=== PATIENT | male | born 1965 | race Caucasian/White ===

== ENCOUNTER 2019-11-04 09:21 | Outpatient (CLI) | payer BC, SELFPAY ==
--- NOTE | 2019-11-04 10:00 | CT_ITS ---
WS: [id number] CT CHEST, ABDOMEN, AND PELVIS TECHNIQUE: Contrast-enhanced CT of the chest, abdomen, and pelvis with coronal and sagittal reformatt ed images. CLINICAL INFORMATION: COLON CANCER COMPARISON: CT 11/23/2018 and 11/17/2017 DLP: 2659.[address] scans at [facility] use at least one of these dose optimization techniques: automat ed exposure control; mA and/or kV adjustment per patient size (includes targeted exams where dose is matched to clinical indication); or iterative reconstruction. CT CHEST: 3 mm noncalcified pulmonary nodule right middle lobe anteriorly is unchanged. No new pulmonary parenc hymal abnormalities. No acute pulmonary infiltrates. No mediastinal or hilar lymphadenopathy. No axil rajiv lymphadenopathy. Normal thoracic aorta. Calcified right hilar nodes. Normal thyroid gland. No ev idence of metastatic disease in the chest. CT ABDOMEN AND PELVIS: Normal liver. Calcified gallstones in the gallbladder. Normal spleen. Normal gastric esophageal junct ion. Adrenal glands are normal. Normal renal parenchymal enhancement. Normal pancreas. No abdominal l ymphadenopathy. No periaortic lymphadenopathy. No inguinal lymphadenopathy. Prior rectosigmoid anasto mosis. Incidental fat-containing umbilical hernia. Enlarged prostate measuring 4.1 x 5.0 cm appears progressed since 2019. Recommend correlation PSA. CT/CT chest abd pel w con* IMPRESSION: 1. No evidence of metastatic disease in the chest abdomen or pelvis. 2. Stable rectosigmoid anastomosis. 3. Stable tiny 3 mm right middle lobe noncalcified nodule is unchanged. 4. Stable cholelithiasis with gallstones near the gallbladder neck. 5. Enlarged prostate measuring 4.1 x 5.0 cm appears progressed since 2019. Norberto mmend correlation PSA.
[2019-11-04 10:12] LABS: Basophils # 0.1 10^3/uL (0.0-0.1); Basophils % 1.7 %; Eosinophils # 0.2 10^3/uL (0.0-0.8); Eosinophils % 4.3 %; Hematocrit 40.3 % (42.0-52.0); Hemoglobin 13.2 g/dL (11.7-16.6); Lymphocytes # 1.3 10^3/uL (0.8-4.8); Lymphocytes % 26.7 %; Mean Corpuscular HGB Conc 32.8 g/dL (30.0-36.0); Mean Corpuscular Hemoglobin 29.5 pg (28.0-34.0); Mean Platelet Volume 9.7 fL (7.4-10.4); Monocytes # 0.5 10^3/uL (0.2-0.9); Monocytes % 10.1 %; Neutrophils # 2.8 10^3/uL (1.8-7.7); Nucleated Red Blood Cells % 0 %; Platelet Count 285 10^3/cmm (130-400); Red Blood Count 4.48 10^6/uL (4.1-5.3); Red Cell Distribution Width 12.5 % (12.1-15.1); White Blood Count 4.8 10^3/uL (4.0-10.0)
[2019-11-04 10:21] LABS: Alanine Aminotransferase 21 U/L (0-41); Albumin Level 4.8 g/dL (3.5-5.2); Alkaline Phosphatase 62 IU/L (40-130); Anion Gap 14.9 (5-19); Aspartate Amino Transferase 20 U/L (0-40); Blood Urea Nitrogen 23 mg/dL (6-20); Calcium 10.3 mg/dL (8.5-10.5); Carbon Dioxide 28 mmol/L (22-29); Chloride 102 mmol/L (98-107); Glomerular Filtration Rate 78.5 mL/min (90-130); Glucose 106 mg/dL (65-115); Osmolality Calculated 287 mOsm/kg (285-295); Potassium 4.9 mmol/L (3.5-5.1); Sodium 140 mmol/L (136-145); Total Bilirubin 0.4 mg/dL (0.15-1.2); Total Protein 7.8 g/dL (6.6-8.7)
[2019-11-04] MEDS: iohexol 300 mg/mL 50 mL Btl PO (10:29)
[2019-11-04 10:44] LABS: Carcinoembryonic Antigen 1.1 ng/mL (0.0-4.7)
[2019-11-04] MEDS: iohexol 300 mg/mL 100 mL Btl IV (11:17)
== END 2019-11-04 09:22 | disposition home or self-care (01) ==
LOC: RADWPI 09:32
PROVIDERS: Visit Provider Internal Medicine Medical Oncology
DX: C18.9 Malignant neoplasm of colon, unspecified (principal); K63.89 Other specified diseases of intestine; R91.1 Solitary pulmonary nodule; K80.20 Calculus of gallbladder without cholecystitis without obstruction; N40.0 Benign prostatic hyperplasia without lower urinary tract symptoms
CPT/HCPCS: 36415; 71260; 74177; 80053; 82378; 85025; Q9967

== ENCOUNTER 2019-11-18 14:17 | Outpatient (CLI) | payer BC, SELFPAY ==
--- NOTE | 2019-11-18 15:24 | ONC FU_ITS ---
Dr. Vaca Patient Follow-Up Note Patient: Daniel Leach Unit #: [id number]: 1965 Dicatated By: Joseph Vaca M.D.Date of Visit:Nov 18, 2019 Onc Med Follow-up/Prog Note Chief Complaint: Colon cancer. 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 He had presented with hematochezia. He underwent colonoscopy by Dr. Peace in [place] on 10/07/2015. It showed a malignant appearing mass at the rectosigmoid junction, distal margin estimated at 11 cm from the anal verge. It was reported to be otherwise unremarkable. He had staging CT of the chest/abdomen/pelvis on 10/08/2015. It did show wall thickening of the colon at the rectosigmoid junction. There is a single lymph node identified just posterior to that portion of the colon. It measured 8 mm in short axis. There were no pathologically enlarged lymph nodes identified. There was no evidence of any other metastatic disease. He was seen by Dr. Aguiar on 10/14/2015. On 10/23/2015 he underwent hand-assisted, laparoscopic low anterior resection. Dr. Aguiar indicated to me personally that the tumor was located above the peritoneal reflection. Pathology showed invasive moderately differentiated adenocarcinoma measuring 3.5 x 3 x 1 cm. There was transmural invasion into pericolonic adipose tissue. The tumor was located 26 cm from the proximal line of resection and 3 cm from the distal line of resection. The radial margin was 1.1 cm. There was evidence of small vessel lymphovascular invasion. There was involvement in 3 of 12 lymph nodes. I had seen him initially on 11/10/2015. In view of the lymph node involvement, I did recommend adjuvant chemotherapy with modified FOLFOX. He started his first cycle of treatment on 11/19/2015. With cycle 2 he had some nausea and low-grade fever after returning home on day 1. With cycle 3 he had a dose reduction in the oxaliplatin to 75 mg/m2 due to neuropathy, and with cycle 4 it was further reduced to 65 mg/m2. The oxaliplatin was omitted after 8 cycles due to worsening neuropathy in his feet. He completed 12 cycles of treatment in April 2016. He was then followed on expectant management. He has been in very good general health. He has hypertension and hyperlipidemia, and he also has a history of cardiac arrhythmia. He has had no other medical illnesses, and he has had no prior surgeries. He is a nonsmoker. INTERIM HISTORY: His CT abdomen/pelvis on 11/28/2016 showed no evidence of disease progression. He had surveillance CT scans of the chest, abdomen, and pelvis on 05/18/2017. The only significant finding was a single 4 mm noncalcified pulmonary nodule in the right middle lobe. That area had not been imaged on any previous studies. There was otherwise no evidence of metastatic disease within the chest, abdomen, or pelvis. He continued on observation/expectant management. His surveillance colonoscopy on 06/02/2017 showed shortened colon from his previous resection, but there were no abnormalities noted. His surveillance CT scans of the chest, abdomen, and pelvis on 11/17/2017 showed no evidence of metastatic disease. Again noted was a tiny noncalcified pulmonary nodule right middle lobe measuring 3 mm, unchanged from the previous study. His CT scans on 11/23/2018 showed no evidence of metastatic disease in the chest, abdomen, or pelvis. A 3 mm right middle lobe noncalcified pulmonary nodule appeared stable. He continued on observation/expectant management. Surveillance CT scans on 11/04/2019 showed no evidence of metastatic disease in the chest, abdomen, or pelvis. The tiny 3 mm right middle lobe noncalcified nodule. Unchanged. The prostate was noted to be enlarged, measuring 4.1 x 5.0 cm, and it appeared to have progressed since the 2019 study. He is seen for a scheduled visit. He has been feeling good generally. He continues to have good energy and normal activity. ECOG score is 0. His appetite is good. His weight is down 9 pounds. He has no fever or night sweats. He has no shortness of breath, cough, or chest pain. He has no GI complaints. Both bowel and bladder function are normal. He has no significant joint or bone pain. He has no focal neurologic symptoms. Medications: AmLODIPine Besylate 1 (10 mg) Tablet Oral daily, Lisinopril 1 Tablet (of 20 mg) Oral at bedtime, Lisinopril-Hydrochlorothiazide 1 Tablet (of 20-12.5 mg) Oral every am, Magnesium Oxide 1 Tablet (of 400 mg) Capsule Oral daily PRN, Metoprolol Tartrate 0.5 Tablet (of 50 mg) Oral b.i.d., Pravastatin Sodium 1 Tablet (of 20 mg) Oral at bedtime Allergies: No Known Allergies. Review of Systems: Constitutional - He has good energay and he has normal activity. His appetite is good. His weight is down 9 lbs. No fever, chills, hot flashes, or night sweats. ECOG score is 0, ENMT - No sinus congestion/drainage. No mouth sores. No sore throat or difficulty swallowing, Hematologic/Lymphatic - No abnormal bruising or bleeding, Respiratory - No shortness of breath. No cough. No pleuritic pain or hemoptysis, Cardiovascular - No angina pain. No palpitations, Gastrointestinal - No nausea or vomiting. No heartburn or acid reflux. No diarrhea or constipation. No blood in the stool or black stools, Genitourinary (M) - No dysuria or hematuria. No urinary frequency. No urgency or incontinence, Musculoskeletal - No joint or bone pain, Integumentary - No skin complications, Neurologic - No headache or dizziness. No numbness/paresthesias or other focal neurologic symptoms, Psychiatric - No anxiety or depression. No insomnia. Vital Signs: Performed on Nov 18, 2019 14:30 Height - 70.00 in Weight - 191.2 lbs (LOW) BSA - 2.05 sq.m BMI - 27.43 Temperature - 98.9 F (HIGH) Pulse - 62 /min Respiration - 20 /min BP - 136/83 mm(hg) O2 Sat - 100 % Pain - 0 Physical Examination: Constitutional - He looks good generally, Eyes - Sclerae nonicteric. Conjunctivae clear, ENMT - No lesions noted in the oral cavity, Hematologic/Lymphatic - No cervical, clavicular, or axillary adenopathy, Respiratory - Lungs are clear with good air movement bilaterally, Cardiovascular - Heart rhythm is a regular. There is no murmur, gallop, or rub noted, Abdomen - Soft. Liver and spleen are not enlarged. There is no abdominal mass or ascites noted and there is no inguinal adenopathy, Extremities - No edema, Neurologic - No focal neurologic deficits noted. Lab/Imaging: Test performed on November 04, 2019 09:50 Sodium 140 mmol/L Potassium 4.9 mmol/L Chloride 102 mmol/L CO2 28 mmol/L Anion Gap 14.9 BUN 23 mg/dL Creatinine 1.0 mg/dL Cr Clearance (Est) 110.9900 mL/min eGFR 78.5 mL/min Glucose 106 mg/dL Calcium 10.3 mg/dL Protein, Total 7.8 g/dL Albumin 4.8 g/dL Globulin 3.0 g/dL Bilirubin, Total 0.4 mg/dL ALT (SGPT) 21 U/L AST (SGOT) 20 U/L Alkaline Phosphatase 62 IU/L WBC 4.8 10 3/uL RBC 4.48 10 6/uL HGB 13.2 g/dL HCT 40.3 % MCV 90.0 fL MCH 29.5 pg MCHC 32.8 g/dL RDW 12.5 % Platelet Count 285 10 3/cmm MPV 9.7 fL Neutrophils 2.8 10 3/uL Lymphocytes 1.3 10 3/uL Monocytes 0.5 10 3/uL Eosinophils 0.2 10 3/uL Basophils 0.1 10 3/uL Neutrophil % 57.0 % Lymphocyte % 26.7 % Monocyte % 10.1 % Eosinophil % 4.3 % Basophils % 1.7 % CEA 1.1 ng/mL Impression: 1. 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 He underwent laparoscopic low anterior resection on 10/23/2015. 2. He was given postoperative adjuvant chemotherapy with 12 cycles of modified FOLFOX, completed in April 2016. He did experience significant neuropathy with the oxaliplatin, requiring dose reductions at cycle 3 and again at cycle 4. The oxaliplatin was admitted after 8 cycles. He otherwise tolerated the chemotherapy well. His other medical illnesses include: 3. Hypertension. 4. Hyperlipidemia. 5. History of palpitations. He has continued observation/expectant management following completion of the chemotherapy. He has been doing very well clincially with no evidence of recurrence of the colon cancer. Plan: He remains on observation/expectant management for the colon cancer. I will check with Dr. Piper regarding his surveillance colonoscopy, which normally would be due now. I will check with Dr. Milligan regarding any further evaluation for the prostate. I will see him again in 6 months. Signed By: Joseph Vaca M.D. <<Signature on File>>
== END 2019-11-18 14:18 | disposition home or self-care (01) ==
LOC: ONCMED 14:19
PROVIDERS: Visit Provider Internal Medicine Medical Oncology
DX: Z08 Encounter for follow-up examination after completed treatment for malignant neoplasm (principal); Z85.038 Personal history of other malignant neoplasm of large intestine; D50.9 Iron deficiency anemia, unspecified; G62.9 Polyneuropathy, unspecified; E78.5 Hyperlipidemia, unspecified; I10 Essential (primary) hypertension; Z92.21 Personal history of antineoplastic chemotherapy
CPT/HCPCS: G0463

== ENCOUNTER 2020-05-25 13:53 | Outpatient (CLI) | payer BC, SELFPAY ==
[2020-05-25 15:14] LABS: Basophils # 0.1 10^3/uL (0.0-0.1); Basophils % 0.8 %; Eosinophils # 0.1 10^3/uL (0.0-0.8); Eosinophils % 1.1 %; Hematocrit 40.1 % (42.0-52.0); Hemoglobin 13.5 g/dL (11.7-16.6); Lymphocytes # 1.4 10^3/uL (0.8-4.8); Lymphocytes % 18.6 %; Mean Corpuscular HGB Conc 33.7 g/dL (30.0-36.0); Mean Corpuscular Hemoglobin 29.5 pg (28.0-34.0); Mean Corpuscular Volume 87.7 fL (80-94); Mean Platelet Volume 9.2 fL (7.4-10.4); Monocytes # 0.6 10^3/uL (0.2-0.9); Monocytes % 8.2 %; Neutrophils # 5.35 10^3/uL (1.8-7.7); Nucleated Red Blood Cells % 0 %; Platelet Count 286 10^3/cmm (130-400); Red Blood Count 4.57 10^6/uL (4.1-5.3); Red Cell Distribution Width 12.6 % (12.1-15.1); White Blood Count 7.5 10^3/uL (4.0-10.0)
[2020-05-25 15:47] LABS: Carcinoembryonic Antigen 0.9 ng/mL (0.0-4.7); Prostate Specific Antigen 0.645 ng/mL (0-4)
[2020-05-25 16:09] LABS: Alanine Aminotransferase 23 U/L (0-41); Albumin Level 4.5 g/dL (3.5-5.2); Alkaline Phosphatase 65 IU/L (40-130); Anion Gap 14.7 (5-19); Aspartate Amino Transferase 23 U/L (0-40); Blood Urea Nitrogen 19 mg/dL (6-20); Calcium 9.8 mg/dL (8.5-10.5); Carbon Dioxide 27 mmol/L (22-29); Chloride 103 mmol/L (98-107); Glomerular Filtration Rate 88.3 mL/min (90-130); Glucose 100 mg/dL (65-115); Osmolality Calculated 294 mOsm/kg (285-295); Potassium 3.7 mmol/L (3.5-5.1); Sodium 141 mmol/L (136-145); Total Bilirubin 0.5 mg/dL (0.15-1.2); Total Protein 7.5 g/dL (6.6-8.7)
--- NOTE | 2020-05-26 08:11 | ONC FU_ITS ---
Dr. Vaca Patient Follow-Up Note Patient: Daniel Leach Unit #: [id number]: 1965 Dicatated By: Joseph Vaca M.D.Date of Visit:May 25, 2020 Onc Med Follow-up/Prog Note Chief Complaint: Colon cancer. 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 He had presented with hematochezia. He underwent colonoscopy by Dr. Peace in [place] on 10/07/2015. It showed a malignant appearing mass at the rectosigmoid junction, distal margin estimated at 11 cm from the anal verge. It was reported to be otherwise unremarkable. He had staging CT of the chest/abdomen/pelvis on 10/08/2015. It did show wall thickening of the colon at the rectosigmoid junction. There is a single lymph node identified just posterior to that portion of the colon. It measured 8 mm in short axis. There were no pathologically enlarged lymph nodes identified. There was no evidence of any other metastatic disease. He was seen by Dr. Aguiar on 10/14/2015. On 10/23/2015 he underwent hand-assisted, laparoscopic low anterior resection. Dr. Aguiar indicated to me personally that the tumor was located above the peritoneal reflection. Pathology showed invasive moderately differentiated adenocarcinoma measuring 3.5 x 3 x 1 cm. There was transmural invasion into pericolonic adipose tissue. The tumor was located 26 cm from the proximal line of resection and 3 cm from the distal line of resection. The radial margin was 1.1 cm. There was evidence of small vessel lymphovascular invasion. There was involvement in 3 of 12 lymph nodes. I had seen him initially on 11/10/2015. In view of the lymph node involvement, I did recommend adjuvant chemotherapy with modified FOLFOX. He started his first cycle of treatment on 11/19/2015. With cycle 2 he had some nausea and low-grade fever after returning home on day 1. With cycle 3 he had a dose reduction in the oxaliplatin to 75 mg/m2 due to neuropathy, and with cycle 4 it was further reduced to 65 mg/m2. The oxaliplatin was omitted after 8 cycles due to worsening neuropathy in his feet. He completed 12 cycles of treatment in April 2016. He was then followed on expectant management. He has been in very good general health. He has hypertension and hyperlipidemia, and he also has a history of cardiac arrhythmia. He has had no other medical illnesses, and he has had no prior surgeries. He is a nonsmoker. INTERIM HISTORY: His CT abdomen/pelvis on 11/28/2016 showed no evidence of disease progression. He had surveillance CT scans of the chest, abdomen, and pelvis on 05/18/2017. The only significant finding was a single 4 mm noncalcified pulmonary nodule in the right middle lobe. That area had not been imaged on any previous studies. There was otherwise no evidence of metastatic disease within the chest, abdomen, or pelvis. He continued on observation/expectant management. His surveillance colonoscopy on 06/02/2017 showed shortened colon from his previous resection, but there were no abnormalities noted. His surveillance CT scans of the chest, abdomen, and pelvis on 11/17/2017 showed no evidence of metastatic disease. Again noted was a tiny noncalcified pulmonary nodule right middle lobe measuring 3 mm, unchanged from the previous study. His CT scans on 11/23/2018 showed no evidence of metastatic disease in the chest, abdomen, or pelvis. A 3 mm right middle lobe noncalcified pulmonary nodule appeared stable. Surveillance CT scans on 11/04/2019 showed no evidence of metastatic disease in the chest, abdomen, or pelvis. The tiny 3 mm right middle lobe noncalcified nodule. Unchanged. The prostate was noted to be enlarged, measuring 4.1 x 5.0 cm, and it appeared to have progressed since the 2019 study. He continued on observation/expectant management. He is seen for a scheduled visit. He has been feeling good generally. He really has no significant complaints. He does note that he has continued to have more frequent bowel movements since his colon surgery, but not actual diarrhea. He is a little overdue for his surveillance colonoscopy. Medications: AmLODIPine Besylate 1 (10 mg) Tablet Oral daily, Lisinopril 1 Tablet (of 20 mg) Oral at bedtime, Lisinopril-Hydrochlorothiazide 1 Tablet (of 20-12.5 mg) Oral every am, Magnesium Oxide 1 Tablet (of 400 mg) Capsule Oral daily PRN, Metoprolol Tartrate 0.5 Tablet (of 50 mg) Oral b.i.d. Allergies: No Known Allergies. Review of Systems: Constitutional - He has good energy and activity tolerance. Appetite is good and weight is stable. No fever or night sweats. ECOG score is 0, ENMT - No sinus congestion/drainage. No mouth sores. No sore throat or difficulty swallowing, Hematologic/Lymphatic - No abnormal bruising or bleeding, Respiratory - No shortness of breath. No cough. No pleuritic pain or hemoptysis, Cardiovascular - No angina pain. No palpitations, Gastrointestinal - No nausea or vomiting. No heartburn or acid reflux. He still has more frequent bowel movement since his colon surgery, but not actual diarrhea. No blood in the stool or black stools, Genitourinary (M) - No dysuria or hematuria. No urinary frequency. No urgency or incontinence, Musculoskeletal - He has normal musculoskeletal pain, Integumentary - No skin rash, Neurologic - No headache or dizziness. No numbness or tingling. No other focal neurologic symptoms, Psychiatric - No anxiety or depression. No insomnia. Vital Signs: Performed on May 25, 2020 15:05 Height - 70.00 in Weight - 186.2 lbs (LOW) BSA - 2.02 sq.m BMI - 26.72 Temperature - 98.1 F (LOW) Pulse - 64 /min Respiration - 17 /min BP - 159/90 mm(hg) (HIGH) O2 Sat - 99 % Pain - 0 Physical Examination: Constitutional - He looks good generally, Eyes - Sclerae nonicteric. Conjunctivae clear, ENMT - No lesions noted in the oral cavity, Hematologic/Lymphatic - No cervical, clavicular, or axillary adenopathy, Respiratory - Lungs are clear with good air movement bilaterally, Cardiovascular - Heart rhythm is regular. There is no murmur, gallop, or rub noted, Abdomen - Soft. Liver and spleen are not enlarged. There is no abdominal mass or ascites noted and there is no inguinal adenopathy, Extremities - No edema, Neurologic - No focal neurologic deficits noted. Lab/Imaging: Test performed on May 25, 2020 15:03 Sodium 141 mmol/L Potassium 3.7 mmol/L Chloride 103 mmol/L CO2 27 mmol/L Anion Gap 14.7 BUN 19 mg/dL Creatinine 0.9 mg/dL Cr Clearance (Est) 113.4000 mL/min eGFR 88.3 mL/min Glucose 100 mg/dL Osmolality - Calculated 294 mOsm/kg Calcium 9.8 mg/dL Protein, Total 7.5 g/dL Albumin 4.5 g/dL Globulin 3.0 g/dL Bilirubin, Total 0.5 mg/dL ALT (SGPT) 23 U/L AST (SGOT) 23 U/L Alkaline Phosphatase 65 IU/L WBC 7.5 10 3/uL RBC 4.57 10 6/uL HGB 13.5 g/dL HCT 40.1 % MCV 87.7 fL MCH 29.5 pg MCHC 33.7 g/dL RDW 12.6 % Platelet Count 286 10 3/cmm MPV 9.2 fL Neutrophils 5.35 10 3/uL Lymphocytes 1.4 10 3/uL Monocytes 0.6 10 3/uL Eosinophils 0.1 10 3/uL Basophils 0.1 10 3/uL Neutrophil % 71.0 % Lymphocyte % 18.6 % Monocyte % 8.2 % Eosinophil % 1.1 % Basophils % 0.8 % NRBC % 0 % CEA 0.9 ng/mL PSA 0.645 ng/mL Impression: 1. 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 He underwent laparoscopic low anterior resection on 10/23/2015. 2. He was given postoperative adjuvant chemotherapy with 12 cycles of modified FOLFOX, completed in April 2016. He did experience significant neuropathy with the oxaliplatin, requiring dose reductions at cycle 3 and again at cycle 4. The oxaliplatin was admitted after 8 cycles. He otherwise tolerated the chemotherapy well. His other medical illnesses include: 3. Hypertension. 4. Hyperlipidemia. 5. History of palpitations. He has continued observation/expectant management following completion of the chemotherapy. He appears to be doing very well clincially. Thus far there has been no evidence of recurrence of the colon cancer. Plan: He remains on observation/expectant management for the colon cancer. He will see Dr. Piper for surveillance colonoscopy. I will just see him again in 1 year. I will recheck his lab studies and he will have his final surveillance CT scans with that visit. Signed By: Joseph Vaca M.D. <<Signature on File>>
== END 2020-05-25 13:54 | disposition home or self-care (01) ==
PROVIDERS: PCP Family Medicine; Visit Provider Internal Medicine Medical Oncology
DX: Z08 Encounter for follow-up examination after completed treatment for malignant neoplasm (principal); Z85.038 Personal history of other malignant neoplasm of large intestine; D50.9 Iron deficiency anemia, unspecified; G62.9 Polyneuropathy, unspecified; I10 Essential (primary) hypertension; E78.5 Hyperlipidemia, unspecified; R00.2 Palpitations; Z92.21 Personal history of antineoplastic chemotherapy; Z79.899 Other long term (current) drug therapy
CPT/HCPCS: 36415; 80053; 82378; 84153; 85025; G0463

== ENCOUNTER 2020-10-28 07:12 | Outpatient (CLI) | payer BC, SELFPAY ==
--- NOTE | 2020-10-28 07:20 | US_ITS ---
WS: [id number] TESTICULAR ULTRASOUND HISTORY: TESTICULAR PAIN RIGHT COMPARISON: None available. TECHNIQUE: Real-time and color Doppler imaging or utilized to perform a testicular ultrasound. Right testicle: 4.6 cm x 3.5 cm x 2.7 cm. Normal size and echogenicity. No mass or torsion. Normal color Doppler is present throughout. Systolic and diastolic velocities are both present. Small hydrocele. Minimal low level echoes throughout. Right epididymis: Small complex spermatoceles or cysts within the epididymis. No increased vascularit y. Left testicle: 4.8 cm x 2.6 cm x 2.6 cm. Normal size. Normal Doppler. Normal color Doppler is present throughout. Systolic and diastolic velocities are both present. Small simple hydrocele. Left epididymis: Small spermatoceles. The epididymis is an large but no increased vascularity. US/US scrotum [id number] IMPRESSION: 1. No testicular mass or torsion. 2. Bilateral spermatoceles.
== END 2020-10-28 07:13 | disposition home or self-care (01) ==
PROVIDERS: PCP Family Medicine; Visit Provider Family Medicine
DX: N50.811 Right testicular pain (principal); N43.42 Spermatocele of epididymis, multiple
CPT/HCPCS: 76870

== ENCOUNTER 2021-05-25 07:48 | Outpatient (CLI) | payer BC, SELFPAY ==
--- NOTE | 2021-05-25 | CT_ITS ---
WS: [id number] CT CHEST, ABDOMEN, AND PELVIS TECHNIQUE: Contrast-enhanced CT of the chest, abdomen, and pelvis with coronal and sagittal reformatt ed images. CLINICAL INFORMATION: COLON CA COMPARISON: November 04, 2019 DLP: 2411.[address] scans at [facility] use at least one of these dose optimization techniques: automated e xposure control; mA and/or kV adjustment per patient size (includes targeted exams where dose is matc hed to clinical indication); or iterative reconstruction. CT CHEST: Stable 3 mm calcified nodule in the right middle lobe anteriorly. No other suspicious pulmonary paren chymal opacities. No evidence of metastatic disease in chest. Normal caliber thoracic aorta. Proximal main pulmonary arteries are normal. Normal thyroid gland. Calcified hilar nodes. No axillary lymphad enopathy. CT ABDOMEN AND PELVIS: Diffuse fatty infiltration liver. Cholelithiasis. Normal portal vein and splenic vein. Normal spleen. Adrenal glands are normal. Normal renal parenchymal enhancement. No hydronephrosis. Small right bebe l cyst. Normal pancreatic parenchymal enhancement. Normal GE junction. Normal caliber abdominal aorta . No abdominal or pelvic lymphadenopathy. No inguinal lymphadenopathy. Prior rectosigmoid anastomosis . Incidental tiny fat-containing umbilical hernia. Enlarged prostate measuring 5.0 x 4.1 cm is uncha nged. Pelvic phleboliths. CT/CT chest abd pel w con* IMPRESSION: 1. No evidence of metastatic disease in the chest, abdomen, or pelvis. 2. Stable rectosigmoid anastomosis. 3. Stable tiny 3 mm right middle lobe noncalcified nodule 4. Stable cholelithiasis with gallstones near the gallbladder neck. 5. Enlarged prostate measuring 4.1 x 5.0 cm appears unchanged since 2019. Recom mend correlation PSA.
[2021-05-25] MEDS: iohexol 350 mg/mL 100 mL Btl IV (15:16)
[2021-05-25] MEDS: iohexol 300 mg/mL 50 mL Btl PO (15:16)
== END 2021-05-25 07:49 | disposition home or self-care (01) ==
PROVIDERS: PCP Family Medicine; Visit Provider Internal Medicine Medical Oncology
DX: C19 Malignant neoplasm of rectosigmoid junction (principal); K63.89 Other specified diseases of intestine; K80.20 Calculus of gallbladder without cholecystitis without obstruction; N40.0 Benign prostatic hyperplasia without lower urinary tract symptoms; R91.8 Other nonspecific abnormal finding of lung field
CPT/HCPCS: 71260; 74177; Q9967

== ENCOUNTER 2021-05-25 09:52 | Outpatient (CLI) | payer BC, SELFPAY ==
[2021-05-25 11:02] LABS: Basophils # 0.1 10^3/uL (0.0-0.1); Basophils % 1.1 %; Eosinophils # 0.1 10^3/uL (0.0-0.8); Eosinophils % 2.3 %; Hematocrit 38.4 % (42.0-52.0); Hemoglobin 12.9 g/dL (11.7-16.6); Lymphocytes # 1.5 10^3/uL (0.8-4.8); Lymphocytes % 27.2 %; Mean Corpuscular HGB Conc 33.6 g/dL (30.0-36.0); Mean Corpuscular Hemoglobin 29.5 pg (28.0-34.0); Mean Corpuscular Volume 87.9 fl (80-94); Mean Platelet Volume 9.4 fL (7.4-10.4); Monocytes # 0.5 10^3/uL (0.2-0.9); Monocytes % 9.8 %; Neutrophils # 3.16 10^3/uL (1.8-7.7); Neutrophils % 59.2 %; Nucleated Red Blood Cells % 0 %; Platelet Count 287 10^3/cmm (130-400); Red Blood Count 4.37 10^6/uL (4.1-5.3); Red Cell Distribution Width 12.5 % (12.1-15.1); White Blood Count 5.3 10^3/uL (4.0-10.0)
[2021-05-25 11:31] LABS: Carcinoembryonic Antigen 1.1 ng/mL (0.0-4.7)
[2021-05-25 11:42] LABS: Alanine Aminotransferase 17 U/L (0-41); Albumin Level 4.5 g/dL (3.5-5.2); Alkaline Phosphatase 58 IU/L (40-130); Anion Gap 17.1 (5-19); Aspartate Amino Transferase 18 U/L (0-40); Blood Urea Nitrogen 19 mg/dL (6-20); Calcium 8.9 mg/dL (8.5-10.5); Carbon Dioxide 22 mmol/L (22-29); Chloride 101 mmol/L (98-107); Globulin 2.3 g/dL (1.3-4.6); Glomerular Filtration Rate 77.9 mL/min (90-130); Glucose 84 mg/dL (65-115); Osmolality Calculated 283 mOsm/kg (285-295); Potassium 4.1 mmol/L (3.5-5.1); Sodium 136 mmol/L (136-145); Total Bilirubin 0.4 mg/dL (0.15-1.2); Total Protein 6.8 g/dL (6.6-8.7)
--- NOTE | 2021-05-29 09:35 | ONC FU_ITS ---
Dr. Vaca Patient Follow-Up Note Patient: Daniel Leach Unit #: [id number]: 1965 Dicatated By: Joseph Vaca M.D.Date of Visit:May 25, 2021 Onc Med Follow-up/Prog Note Chief Complaint: Colon cancer. 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 He had presented with hematochezia. He underwent colonoscopy by Dr. Peace in [place] on 10/07/2015. It showed a malignant appearing mass at the rectosigmoid junction, distal margin estimated at 11 cm from the anal verge. It was reported to be otherwise unremarkable. He had staging CT of the chest/abdomen/pelvis on 10/08/2015. It did show wall thickening of the colon at the rectosigmoid junction. There is a single lymph node identified just posterior to that portion of the colon. It measured 8 mm in short axis. There were no pathologically enlarged lymph nodes identified. There was no evidence of any other metastatic disease. He was seen by Dr. Aguiar on 10/14/2015. On 10/23/2015 he underwent hand-assisted, laparoscopic low anterior resection. Dr. Aguiar indicated to me personally that the tumor was located above the peritoneal reflection. Pathology showed invasive moderately differentiated adenocarcinoma measuring 3.5 x 3 x 1 cm. There was transmural invasion into pericolonic adipose tissue. The tumor was located 26 cm from the proximal line of resection and 3 cm from the distal line of resection. The radial margin was 1.1 cm. There was evidence of small vessel lymphovascular invasion. There was involvement in 3 of 12 lymph nodes. I had seen him initially on 11/10/2015. In view of the lymph node involvement, I did recommend adjuvant chemotherapy with modified FOLFOX. He started his first cycle of treatment on 11/19/2015. With cycle 2 he had some nausea and low-grade fever after returning home on day 1. With cycle 3 he had a dose reduction in the oxaliplatin to 75 mg/m2 due to neuropathy, and with cycle 4 it was further reduced to 65 mg/m2. The oxaliplatin was omitted after 8 cycles due to worsening neuropathy in his feet. He completed 12 cycles of treatment in April 2016. He was then followed expectantly. His CT abdomen/pelvis on 11/28/2016 showed no evidence of disease progression. He had surveillance CT scans of the chest, abdomen, and pelvis on 05/18/2017. The only significant finding was a single 4 mm noncalcified pulmonary nodule in the right middle lobe. That area had not been imaged on any previous studies. There was otherwise no evidence of metastatic disease within the chest, abdomen, or pelvis. He continued on expectant management. He has been in very good general health. He has hypertension and hyperlipidemia, and he also has a history of cardiac arrhythmia. He has had no other medical illnesses, and he has had no prior surgeries. He is a nonsmoker. INTERIM HISTORY: His CT scans on 11/04/2019 showed no evidence of metastatic disease in the chest, abdomen, or pelvis. The tiny 3 mm right middle lobe noncalcified nodule appeared unchanged. The prostate was noted to be enlarged, measuring 4.1 x 5.0 cm, and it appeared to have progressed since the 2018 study. He continued on expectant management. Surveillance CT scans on 05/25/2021 showed no evidence of metastatic disease in the chest, abdomen, or pelvis. A 3 mm right middle lobe noncalcified pulmonary nodule appeared stable. The prostate was noted to be enlarged measuring 4.1 x 5.0 cm, also stable. He is seen for a follow-up visit. He has been feeling good generally. He says his energy is a little slow, but he has normal activity. ECOG score is 0. His appetite is good and his weight is stable. He has no fever or night sweats. He has not had sore mouth or throat. He does not complain of cough, and he has not been having shortness of breath or chest pain. He has no GI or complaints. He has no significant joint or bone pain, and he has no residual neuropathy. Medications: AmLODIPine Besylate 1 (10 mg) Tablet Oral daily, Lisinopril 1 Tablet (of 20 mg) Oral at bedtime, Lisinopril-Hydrochlorothiazide 1 Tablet (of 20-12.5 mg) Oral every am, Magnesium Oxide 1 Tablet (of 400 mg) Capsule Oral daily PRN, Metoprolol Tartrate 0.5 Tablet (of 50 mg) Oral b.i.d. Allergies: No Known Allergies. Vital Signs: Performed on May 25, 2021 12:57 Height - 70.00 in Weight - 188.2 lbs (HIGH) BSA - 2.03 sq.m BMI - 27.00 Temperature - 97.4 F (LOW) Pulse - 52 /min (LOW) Respiration - 16 /min BP - 152/78 mm(hg) (HIGH) O2 Sat - 99 % Pain - 0 Fatigue - 2 Physical Examination: Constitutional - He looks good generally, Eyes - Sclerae nonicteric. Conjunctivae clear, ENMT - No lesions noted in the oral cavity, Hematologic/Lymphatic - No cervical, clavicular, or axillary adenopathy, Respiratory - Lungs are clear with good air movement bilaterally, Cardiovascular - Heart rhythm is regular. There is no murmur, gallop, or rub noted, Abdomen - Soft. Liver and spleen are not enlarged. There is no abdominal mass or ascites noted and there is no inguinal adenopathy, Extremities - No edema, Neurologic - No focal neurologic deficits noted. Lab/Imaging: Test performed on May 25, 2021 10:45 Sodium 136 mmol/L Potassium 4.1 mmol/L Chloride 101 mmol/L CO2 22 mmol/L Anion Gap 17.1 BUN 19 mg/dL Creatinine 1.0 mg/dL Cr Clearance (Est) 101.97 mL/min eGFR 77.9 mL/min Glucose 84 mg/dL Osmolality - Calculated 283 mOsm/kg Calcium 8.9 mg/dL Protein, Total 6.8 g/dL Albumin 4.5 g/dL Globulin 2.3 g/dL Bilirubin, Total 0.4 mg/dL ALT (SGPT) 17 U/L AST (SGOT) 18 U/L Alkaline Phosphatase 58 IU/L WBC 5.3 10 3/uL RBC 4.37 10 6/uL HGB 12.9 g/dL HCT 38.4 % MCV 87.9 fl MCH 29.5 pg MCHC 33.6 g/dL RDW 12.5 % Platelet Count 287 10 3/cmm MPV 9.4 fL Neutrophils 3.16 10 3/uL Lymphocytes 1.5 10 3/uL Monocytes 0.5 10 3/uL Eosinophils 0.1 10 3/uL Basophils 0.1 10 3/uL Neutrophil % 59.2 % Lymphocyte % 27.2 % Monocyte % 9.8 % Eosinophil % 2.3 % Basophils % 1.1 % NRBC % 0 % CEA 1.1 ng/mL Problem List: 1. Moderately differentiated adenocarcinoma of the rectosigmoid colon, stage IIIB (pT3, pN1b, M0). 2. Hypertension. 3. Hyperlipidemia. 4. History of palpitations. 5. He has CT evidence of enlarged prostate. 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 He underwent laparoscopic low anterior resection on 10/23/2015. He was given postoperative adjuvant chemotherapy with 12 cycles of modified FOLFOX, completed in April 2016. He experienced significant neuropathy with the oxaliplatin, requiring dose reductions at cycle 3 and again at cycle 4. The oxaliplatin was admitted after 8 cycles. He otherwise tolerated the chemotherapy well. He has been followed expectantly following completion of the chemotherapy. Overall, he has been doing well clinically. His neuropathy symptoms have completely resolved, and there has been no evidence of recurrence of the colon cancer. He is overdue for surveillance colonoscopy, and that will be scheduled with Dr. Piper. As he is 5 years out from completion of treatment, he will now continue regular follow-up with Dr. Garner. He does not require any further routine surveillance CT imaging. I will see him again only as needed. Signed By: Joseph Vaca M.D. <<Signature on File>>
== END 2021-05-25 09:53 | disposition home or self-care (01) ==
LOC: ONCMED 09:54
PROVIDERS: PCP Family Medicine; Visit Provider Internal Medicine Medical Oncology
DX: Z08 Encounter for follow-up examination after completed treatment for malignant neoplasm (principal); Z85.048 Personal history of other malignant neoplasm of rectum, rectosigmoid junction, and anus; I10 Essential (primary) hypertension; E78.5 Hyperlipidemia, unspecified; N40.0 Benign prostatic hyperplasia without lower urinary tract symptoms; Z86.79 Personal history of other diseases of the circulatory system; Z92.21 Personal history of antineoplastic chemotherapy
CPT/HCPCS: 36415; 80053; 82378; 85025; 99214

== ENCOUNTER → 2022-08-02 08:58 | Outpatient (BNVA) | payer BC, SELFPAY | PROVIDERS: PCP Family Medicine; Visit Provider Family Medicine | DX: I10 Essential (primary) hypertension (principal); E78.5 Hyperlipidemia, unspecified | CPT/HCPCS: 80053; 80061 ==

== ENCOUNTER → 2023-10-18 09:47 | Outpatient (BNVA) | payer BC, SELFPAY | PROVIDERS: PCP Family Medicine; Visit Provider Family Medicine | DX: I10 Essential (primary) hypertension (principal); E78.5 Hyperlipidemia, unspecified; Z85.038 Personal history of other malignant neoplasm of large intestine | CPT/HCPCS: 80053; 80061; 82378; 84153; 85025 ==

== ENCOUNTER → 2024-04-30 15:15 | Outpatient (BNVA) | payer BC, SELFPAY | PROVIDERS: PCP Family Medicine; Visit Provider Family Medicine | DX: R30.0 Dysuria (principal); N39.0 Urinary tract infection, site not specified | CPT/HCPCS: 87077; 87086; 87184 ==